=== PATIENT | male | born 1955 | race Caucasian/White ===

== ENCOUNTER 2019-05-06 15:17 | Inpatient (IN) | payer OTHER ==
[2019-05-06 17:39] VITALS: BMI 25.2
--- NOTE | 2019-05-06 19:38 | HP ---
CIWA Score - Admission Criteria OASAS Guidelines: Admission for Medically Managed Detox: Requires at least one of the followin. CIWA greater than 12 2. Seizures within the past 24 hours 3. Delirium tremens within the past 24 hours 4. Hallucinations within the past 24 hours 5. Acute intervention needed for co occurring medical disorder 6. Acute intervention needed for co occurring psychiatric disorder 7. Severe withdrawal that cannot be handled at a lower level of care (continued vomiting, continued diarrhea, abnormal vital signs) requiring intravenous medication and/or fluids 8. Admitting History and Physical - Smoking History Smoking history: Current every day smoker Have you smoked in the past 12 months: Yes Aproximately how many cigarettes per day: 10 - Alcohol/Substance Use Hx Alcohol Use: Yes Admission ROS [facility] Chief Complaint: here for rehab. Allergies/Adverse Reactions: Allergies Allergy/AdvReac Type Severity Reaction Status Date / Time No Known Allergies Allergy Verified 05/06/19 17:18 History of Present Illness: 64 yo with HIV and multiple large and small leg ulcers of both legs. Pt states he was 6 days inpatient detox at a facility- [facility]. Pt is in a methadone program-[address] [address] [facility]. States he is homeless. [place] Pt is homeless. alcohol- 1 pint a day- completed detox cocaine- occ Pt was on Keflex at detox- will restart. HIV pos-cd4> 300, VL- undetectable, does not remember name of meds Pharmacy: [facility]- called but no one picked up this ilana: [phone] [facility] pharmacy: [phone]- called no answer Pt is in a methadone program at [facility] PCP- does not remember name. DUR- no meds Utox: BZO, Bup, cocaine, MTD. - Ebola screening Have you traveled outside of the country in the last 21 days: No Have you had contact with anyone from an Ebola affected area: No - Review of Systems Constitutional: Weakness, Other EENT: reports: No Symptoms Reported Respiratory: reports: No Symptoms reported Cardiac: reports: No Symptoms Reported GI: reports: No Symptoms Reported Musculoskeletal: reports: Other (pt uses walker) Integumentary: reports: Other (ulcer) Patient History - Patient Medical History Hx Anemia: Yes (TAKES IRON SUPPLEMENTS) Hx Asthma: No Hx Chronic Obstructive Pulmonary Disease (COPD): No Hx Cancer: No Hx Cardiac Disorders: No Hx Congestive Heart Failure: No Hx Hypertension: No Hx Hypercholesterolemia: Yes (NO MED) Hx Pacemaker: No HX Cerebrovascular Accident: No Hx Seizures: No Hx Dementia: No Hx Diabetes: No Hx Gastrointestinal Disorders: Yes (acid reflux) Hx Liver Disease: No Hx Genitourinary Disorders: No Hx Sexually Transmitted Disorders: Yes (GONORRHEA AND/OR SYPHILIS IN THE PAST) Hx Renal Disease (ESRD): No Hx Thyroid Disease: Yes (ON LEVOTHYROXINE) Hx Human Immunodeficiency Virus (HIV): Yes (since 1984, does not remember name of medicine) Hx Hepatitis C: Yes (pt states resolved) Hx Depression: No Hx Suicide Attempt: No (DENIES) Hx Bipolar Disorder: No Hx Schizophrenia: No Other Medical History: pt has multiple lower leg ulcers- venous stasis type ulcers - Patient Surgical History Past Surgical History: No Hx Neurologic Surgery: No Hx Cataract Extraction: No Hx Cardiac Surgery: No Hx Lung Surgery: No Hx Breast Surgery: No Hx Breast Biopsy: No Hx Abdominal Surgery: No Hx Appendectomy: No Hx Cholecystectomy: No Hx Genitourinary Surgery: No Hx Section: No Hx Orthopedic Surgery: Yes (FOR DISLOCATION OF LEFT SHOULDER) Anesthesia Reaction: No - PPD History Date: 01/09/16 Results: 0 mm - Smoking Cessation Smoking history: Current every day smoker Have you smoked in the past 12 months: Yes Aproximately how many cigarettes per day: 10 Hx Chewing Tobacco Use: No Initiated information on smoking cessation: Yes 'Breaking Loose' booklet given: 05/06/19 - Substances abused Heroin Substance route: Injection Frequency: Daily Amount used: 2 bag Age of first use: 18 Date of last use: 05/04/19 Cocaine Substance route: Injection Frequency: Daily Amount used: 1 bag Age of first use: 18 Date of last use: 05/04/19 Admission Physical Exam BHS - Vital Signs Vital Signs: Vital Signs - 24 hr 05/06/19 17:09 Temperature 98.6 F Pulse Rate 67 Respiratory 18 Rate Blood Pressure 158/95 - Physical General Appearance: Yes: Disheveled, Mild Distress HEENTM: Yes: Within Normal Limits, Hearing grossly Normal, Normal Voice, WILMA, Pharynx Normal Respiratory: Yes: Within Normal Limits, Lungs Clear Neck: Yes: Within Normal Limits, No masses,lesions,Nodules Cardiology: Yes: Within Normal Limits, Regular Rhythm Abdominal: Yes: Within Normal Limits Musculoskeletal: Yes: Within Normal Limits, Other (uses walker) Extremities: Yes: Other (L leg: large 3 inches by 4 inches uler on L leg and multiple small ulcers on L leg ~0.5 inch round R leg: multiple ulcers on back of R leg) Neurological: Yes: Other Integumentary: Yes: Within Normal Limits, Other (lower leg ulcers) Lymphatic: Yes: Within Normal Limits - Diagnostic (1) Opioid dependence on agonist therapy Current Visit: No Status: Acute (2) HIV (human immunodeficiency virus infection) Current Visit: No Status: Chronic (3) Methadone maintenance therapy patient Current Visit: No Status: Chronic (4) Ulcer of left lower extremity Current Visit: No Status: Chronic Qualifiers: Non-pressure ulcer stage: limited to breakdown of skin Qualified Code(s): L97.921 - Non-pressure chronic ulcer of unspecified part of left lower leg limited to breakdown of skin Inpatient Rehab Admission - Rehab Decision to Admit Inpatient rehab admission?: Yes - Initial Determination Are CD services needed?: Yes Free of communicable disease: Yes Not in need of hospitalization: Yes - Rehab Admission Criteria Previous failed treatment: Yes Poor recovery environment: Yes Comorbidities: Yes Lacks judgement: Yes Patient is meeting Inpatient Rehab admission criteria:: Yes (pt completed detox- on methadone)
[2019-05-06] MEDS ORDERED: MAGNESIUM HYDROX 2400MG/30ML ORAL SUSPENSION 30 ML CUP PO PRN (20:45)
[2019-05-06] MEDS ORDERED: MAGNESIUM CITRATE 300 ML BOTTLE PO PRN (20:45)
[2019-05-06] MEDS ORDERED: P-EPHED 60MG/TRIPROLIDI 2.5MG TABLET PO PRN (20:45)
[2019-05-06] MEDS ORDERED: NICOTINE POLACRILEX 2 MG GUM BC PRN (20:45)
[2019-05-06] MEDS ORDERED: MENTHOL/PHENOL 1 EACH UD MM PRN (20:45)
[2019-05-06] MEDS ORDERED: hydrOXYzine PAMOATE 25 MG CAPSULE (FP) PO PRN (20:45)
[2019-05-06] MEDS ORDERED: ACETAMINOPHEN 325 MG TABLET (FP) PO PRN (20:45)
[2019-05-06] MEDS ORDERED: guaiFENesin 200 MG/10 ML 10 ML UNIT-DOSE CUPS PO PRN (20:45)
[2019-05-06] MEDS: THIAMINE HCL 100 MG TABLET (FP) PO SCH (22:17)
[2019-05-06] MEDS: CEPHALEXIN MONOHYDRATE 500 MG CAPSULE (UD) PO SCH (22:17)
[2019-05-07] MEDS ORDERED: METHADONE HCL 10 MG TABLET PO SCH (09:00)
[2019-05-07] MEDS ORDERED: METHADONE HCL 10 MG TABLET ONE (10:55)
[2019-05-07] MEDS: METHADONE 120 MG, METHADONE 10 MG PO SCH (10:56)
[2019-05-07] MEDS ORDERED: METHADONE HCL 40 MG DISPERSABLE TABLET ONE (10:56)
[2019-05-07] MEDS: CEPHALEXIN MONOHYDRATE 500 MG CAPSULE (UD) PO SCH ×2 (10:59→21:59)
[2019-05-07] MEDS: NICOTINE 14 MG/24 HOURS TOPICAL PATCH TD SCH (10:59)
[2019-05-07] MEDS: PRENATAL VITAMINS W/ FOLIC ACID TABLET (FP) PO SCH (10:59)
[2019-05-07 11:54] LABS: HEMATOCRIT 28.6 % (35.4-49); HEMOGLOBIN 8.8 GM/dL (11.7-16.9); MCH 21.6 pg (25.7-33.7); MCHC 30.7 g/dl (32.0-35.9); MEAN CELL VOLUME 70.3 fl (80-96); MEAN PLT VOLUME 8.6 fl (7.5-11.1); PLATELET COUNT 259 K/MM3 (134-434); RBC 4.07 M/mm3 (4.00-5.60); RDW 25.4 % (11.9-15.9); WHITE BLOOD COUNT 3.8 K/mm3 (4.0-10.0)
[2019-05-07 12:11] LABS: BILIRUBIN,TOTAL 0.2 mg/dL (0.2-1); BLOOD UREA NITROGEN 11.4 mg/dL (7-18); CREATININE 0.9 mg/dL (0.55-1.3); TOT PROT 8.2 g/dl (6.4-8.2)
--- NOTE | 2019-05-07 14:42 | PN ---
S Progress Note (SOAP) Subjective: low hgb and hct. Asymptomatic Assessment: anemia, type unspecified 05/07/19 14:42 Plan: Iron supplementation ordered. Will repeat labs.
[2019-05-07] MEDS: LOPERAMIDE HCL 2 MG CAPSULE PO PRN (16:24)
[2019-05-07 17:12] LABS: URINE APPEARANCE CLEAR; URINE BILIRUBIN NEGATIVE (NEGATIVE); URINE COLOR YELLOW; URINE GLUCOSE (UA) NEGATIVE (NEGATIVE); URINE KETONE NEGATIVE (NEGATIVE); URINE LEUK ESTERASE NEGATIVE (NEGATIVE); URINE NITRITE NEGATIVE (NEGATIVE); URINE PROTEIN NEGATIVE (NEGATIVE); URINE UROBILINOGEN 0.2 mg/dL (0.2-1.0)
[2019-05-07] MEDS: ASCORBIC ACID 250 MG TABLET (FP) PO SCH (18:41)
[2019-05-07] MEDS: FERROUS SO4 325 MG TABLET (FP) PO SCH (18:41)
[2019-05-07] MEDS: THIAMINE HCL 100 MG TABLET (FP) PO SCH (21:59)
[2019-05-07] MEDS: MELATONIN 5 MG TABLETS PO PRN (22:00)
[2019-05-07] MEDS: BACITRACIN 15 GM TUBE TOPICAL OINTMENT TP SCH (22:00)
[2019-05-08] MEDS ORDERED: METHADONE HCL 40 MG DISPERSABLE TABLET ONE (05:05)
[2019-05-08] MEDS ORDERED: METHADONE HCL 10 MG TABLET ONE (05:05)
[2019-05-08] MEDS: LOPERAMIDE HCL 2 MG CAPSULE PO PRN ×2 (06:49→13:08)
[2019-05-08] MEDS: METHADONE 120 MG, METHADONE 10 MG PO SCH (06:50)
[2019-05-08] MEDS: FERROUS SO4 325 MG TABLET (FP) PO SCH ×3 (07:17→17:52)
[2019-05-08] MEDS: ASCORBIC ACID 250 MG TABLET (FP) PO SCH ×2 (07:17→17:52)
[2019-05-08] MEDS: CEPHALEXIN MONOHYDRATE 500 MG CAPSULE (UD) PO SCH ×2 (11:01→21:41)
[2019-05-08] MEDS: BACITRACIN 15 GM TUBE TOPICAL OINTMENT TP SCH ×2 (11:01→21:40)
[2019-05-08] MEDS: PRENATAL VITAMINS W/ FOLIC ACID TABLET (FP) PO SCH (11:02)
[2019-05-08] MEDS: NICOTINE 14 MG/24 HOURS TOPICAL PATCH TD SCH (11:03)
[2019-05-08] MEDS: MELATONIN 5 MG TABLETS PO PRN (21:42)
[2019-05-08] MEDS: THIAMINE HCL 100 MG TABLET (FP) PO SCH (21:42)
[2019-05-09] MEDS ORDERED: METHADONE HCL 10 MG TABLET ONE (05:47)
[2019-05-09] MEDS ORDERED: METHADONE HCL 40 MG DISPERSABLE TABLET ONE (05:47)
[2019-05-09] MEDS: METHADONE 120 MG, METHADONE 10 MG PO SCH (06:27)
[2019-05-09] MEDS: FERROUS SO4 325 MG TABLET (FP) PO SCH ×3 (07:44→18:16)
[2019-05-09] MEDS: ASCORBIC ACID 250 MG TABLET (FP) PO SCH ×2 (07:44→18:15)
[2019-05-09] MEDS ORDERED: cloNIDine HCL 0.1 MG TABLET PO PRN (09:40)
[2019-05-09] MEDS: CEPHALEXIN MONOHYDRATE 500 MG CAPSULE (UD) PO SCH ×2 (11:09→21:46)
[2019-05-09] MEDS: PRENATAL VITAMINS W/ FOLIC ACID TABLET (FP) PO SCH (11:09)
[2019-05-09] MEDS: NICOTINE 14 MG/24 HOURS TOPICAL PATCH TD SCH (11:10)
[2019-05-09] MEDS: BACITRACIN 15 GM TUBE TOPICAL OINTMENT TP SCH ×2 (11:10→21:47)
--- NOTE | 2019-05-09 12:17 | PN ---
[facility] Progress Note Note: Pt is a 64 y/o male admitted to rehab for AMY. Pt is homeless and reports sleeping in the [place]. This automatic typewriter inspector called pt's home pharmacy, [facility] and verified his medications as pt is requesting to restart his medicines. Pt is currently taking Biktarvy 1 tab po daily, Levothyroxine 200 mcg po daily, Omeprazole 40 mg po daily, Bactrim Ds 1 tab po daily. Pt reported to be receiving primary care at [facility] at [address] [place] [address] with primary care providers, Dr. Jose Angel Hernandez M.D and NOVA Fernandez. Pt has chronic bilateral lower leg ulcers and dressings were done this morning and examined. Pt reports he has a primary care doctor who manages his medical condition. Vital Signs - 8 hr 05/09/19 08:08 Temperature 97.9 F Pulse Rate 78 Respiratory 18 Rate Blood Pressure 153/82 Exam: Lower extremities/Skin:Right LE with one large oblong shaped ulcer wound of 2cm x 1 cm distal to calf area. One small rounded ulcer about 1/2 cm in size-pink granulation tissue with no drainage. Left LE with one large oval shaped ulcer 2 1/2 cm x 3 cm distal to gilmore area- pink granulation tissue,clean with no drainage. Three small ulcers, of about 1 cm each above heel and the other two dorsally located above ankle. No drainage. A/P Chronic LLE Ulcers Continue wound care and dressing changes as directed. Restart Biktarvy, feosol, protonix. Do Thyroid profile labs Pt will follow up with his PCP after rehab upon discharge for medical management.
[2019-05-09] MEDS: LOPERAMIDE HCL 2 MG CAPSULE PO PRN (12:29)
[2019-05-09] MEDS: BISMUTH SUBSALICYLATE 262 MG/15 ML BTL PO PRN ×2 (14:17→21:48)
[2019-05-09] MEDS: SULFAMETHOXAZOLE/TRIMETHOPRIM 800MG/160MG D.S. TABLET PO SCH (14:31)
[2019-05-09] MEDS: THIAMINE HCL 100 MG TABLET (FP) PO SCH (21:46)
[2019-05-09] MEDS: MELATONIN 5 MG TABLETS PO PRN (21:47)
[2019-05-09] MEDS: IBUPROFEN 400 MG TABLET (FP) PO PRN (22:10)
[2019-05-10] MEDS ORDERED: METHADONE HCL 40 MG DISPERSABLE TABLET ONE (05:48)
[2019-05-10] MEDS ORDERED: METHADONE HCL 10 MG TABLET ONE (05:48)
[2019-05-10] MEDS: METHADONE 120 MG, METHADONE 10 MG PO SCH (06:46)
[2019-05-10] MEDS: FERROUS SO4 325 MG TABLET (FP) PO SCH ×3 (07:12→17:04)
[2019-05-10] MEDS: ASCORBIC ACID 250 MG TABLET (FP) PO SCH ×2 (07:12→17:04)
[2019-05-10] MEDS: SULFAMETHOXAZOLE/TRIMETHOPRIM 800MG/160MG D.S. TABLET PO SCH (10:38)
[2019-05-10] MEDS: PRENATAL VITAMINS W/ FOLIC ACID TABLET (FP) PO SCH (10:38)
[2019-05-10] MEDS: BICTEGRAV/EMTRICIT/TENOFOV (BIKTARVY) 50-200-25 MG TABLET PO SCH (10:38)
[2019-05-10] MEDS: CEPHALEXIN MONOHYDRATE 500 MG CAPSULE (UD) PO SCH ×2 (10:38→21:29)
[2019-05-10] MEDS: BACITRACIN 15 GM TUBE TOPICAL OINTMENT TP SCH ×2 (10:39→21:29)
[2019-05-10] MEDS: NICOTINE 14 MG/24 HOURS TOPICAL PATCH TD SCH (10:39)
[2019-05-10] MEDS: GABAPENTIN 300 MG CAPSULE (FP) PO SCH (10:39)
[2019-05-10] MEDS: BISMUTH SUBSALICYLATE 262 MG/15 ML BTL PO PRN ×2 (13:49→21:30)
[2019-05-10] MEDS: THIAMINE HCL 100 MG TABLET (FP) PO SCH (21:29)
[2019-05-10] MEDS: MELATONIN 5 MG TABLETS PO PRN (21:31)
[2019-05-11] MEDS ORDERED: METHADONE HCL 10 MG TABLET ONE (05:23)
[2019-05-11] MEDS ORDERED: METHADONE HCL 40 MG DISPERSABLE TABLET ONE (05:23)
[2019-05-11] MEDS: METHADONE 120 MG, METHADONE 10 MG PO SCH (06:55)
[2019-05-11] MEDS: FERROUS SO4 325 MG TABLET (FP) PO SCH ×3 (07:20→16:55)
[2019-05-11] MEDS: ASCORBIC ACID 250 MG TABLET (FP) PO SCH ×2 (07:20→16:55)
[2019-05-11 09:48] LABS: BASO % 0.6 % (0-2.0); EOS % 13.5 % (0-4.5); HEMATOCRIT 26.9 % (35.4-49); HEMOGLOBIN 8.5 GM/dL (11.7-16.9); LYMPH % 26.3 % (8-40); MCH 22.3 pg (25.7-33.7); MCHC 31.8 g/dl (32.0-35.9); MEAN CELL VOLUME 70.3 fl (80-96); MEAN PLT VOLUME 8.4 fl (7.5-11.1); NEUT % 53.6 % (42.8-82.8); PLATELET COUNT 222 K/MM3 (134-434); RBC 3.83 M/mm3 (4.00-5.60); RDW 24.9 % (11.9-15.9); WHITE BLOOD COUNT 4.3 K/mm3 (4.0-10.0)
[2019-05-11] MEDS: PRENATAL VITAMINS W/ FOLIC ACID TABLET (FP) PO SCH (10:03)
[2019-05-11] MEDS: CEPHALEXIN MONOHYDRATE 500 MG CAPSULE (UD) PO SCH ×2 (10:03→21:31)
[2019-05-11] MEDS: SULFAMETHOXAZOLE/TRIMETHOPRIM 800MG/160MG D.S. TABLET PO SCH (10:03)
[2019-05-11] MEDS: GABAPENTIN 300 MG CAPSULE (FP) PO SCH (10:03)
[2019-05-11] MEDS: BICTEGRAV/EMTRICIT/TENOFOV (BIKTARVY) 50-200-25 MG TABLET PO SCH (10:04)
[2019-05-11] MEDS: BACITRACIN 15 GM TUBE TOPICAL OINTMENT TP SCH ×2 (10:04→21:32)
[2019-05-11] MEDS: NICOTINE 14 MG/24 HOURS TOPICAL PATCH TD SCH (10:05)
[2019-05-11] MEDS: IBUPROFEN 400 MG TABLET (FP) PO PRN ×2 (12:36→21:32)
[2019-05-11 14:54] LABS: ANISOCYTOSIS 1+; MACROCYTOSIS 0; OVALOCYTE 1+; PLATELET ESTIMATE NORMAL; TEAR DROP CELLS 1+
[2019-05-11] MEDS: THIAMINE HCL 100 MG TABLET (FP) PO SCH (21:31)
[2019-05-12] MEDS: MAG HYDROX/AL HYDROX/SIMETH 30 ML UNIT-DOSE CUP PO PRN ×3 (03:13→21:36)
[2019-05-12] MEDS ORDERED: METHADONE HCL 10 MG TABLET ONE (06:20)
[2019-05-12] MEDS ORDERED: METHADONE HCL 40 MG DISPERSABLE TABLET ONE (06:21)
[2019-05-12] MEDS: METHADONE 120 MG, METHADONE 10 MG PO SCH (06:22)
[2019-05-12] MEDS: ASCORBIC ACID 250 MG TABLET (FP) PO SCH ×2 (07:38→17:40)
[2019-05-12] MEDS: FERROUS SO4 325 MG TABLET (FP) PO SCH ×3 (07:38→17:40)
[2019-05-12] MEDS: GABAPENTIN 300 MG CAPSULE (FP) PO SCH (09:01)
[2019-05-12] MEDS: CEPHALEXIN MONOHYDRATE 500 MG CAPSULE (UD) PO SCH ×2 (09:01→21:35)
[2019-05-12] MEDS: NICOTINE 14 MG/24 HOURS TOPICAL PATCH TD SCH (09:01)
[2019-05-12] MEDS: SULFAMETHOXAZOLE/TRIMETHOPRIM 800MG/160MG D.S. TABLET PO SCH (09:01)
[2019-05-12] MEDS: BICTEGRAV/EMTRICIT/TENOFOV (BIKTARVY) 50-200-25 MG TABLET PO SCH (09:01)
[2019-05-12] MEDS: PRENATAL VITAMINS W/ FOLIC ACID TABLET (FP) PO SCH (09:01)
[2019-05-12] MEDS: BACITRACIN 15 GM TUBE TOPICAL OINTMENT TP SCH ×2 (09:02→21:36)
[2019-05-12] MEDS: IBUPROFEN 400 MG TABLET (FP) PO PRN (09:03)
[2019-05-12] MEDS: THIAMINE HCL 100 MG TABLET (FP) PO SCH (21:35)
[2019-05-13] MEDS ORDERED: METHADONE HCL 40 MG DISPERSABLE TABLET ONE (05:50)
[2019-05-13] MEDS ORDERED: METHADONE HCL 10 MG TABLET ONE (05:50)
[2019-05-13] MEDS: METHADONE 120 MG, METHADONE 10 MG PO SCH (05:51)
[2019-05-13 06:34] VITALS: BP 137/84; PULSE 71; TEMP 97.8
[2019-05-13] MEDS: FERROUS SO4 325 MG TABLET (FP) PO SCH (07:04)
[2019-05-13] MEDS: ASCORBIC ACID 250 MG TABLET (FP) PO SCH (07:05)
[2019-05-13] MEDS: BICTEGRAV/EMTRICIT/TENOFOV (BIKTARVY) 50-200-25 MG TABLET PO SCH (09:25)
[2019-05-13] MEDS: CEPHALEXIN MONOHYDRATE 500 MG CAPSULE (UD) PO SCH (09:26)
[2019-05-13] MEDS: GABAPENTIN 300 MG CAPSULE (FP) PO SCH (09:26)
[2019-05-13] MEDS: NICOTINE 14 MG/24 HOURS TOPICAL PATCH TD SCH (09:26)
[2019-05-13] MEDS: PRENATAL VITAMINS W/ FOLIC ACID TABLET (FP) PO SCH (09:26)
[2019-05-13] MEDS: MAG HYDROX/AL HYDROX/SIMETH 30 ML UNIT-DOSE CUP PO PRN (09:29)
[2019-05-13] MEDS: SULFAMETHOXAZOLE/TRIMETHOPRIM 800MG/160MG D.S. TABLET PO SCH (09:57)
[2019-05-13] MEDS: BACITRACIN 15 GM TUBE TOPICAL OINTMENT TP SCH (09:57)
--- NOTE | 2019-05-13 10:09 | DS ---
[facility] Rehab Discharge Summary - [facility] Rehab Discharge Summary Admission Date: 05/06/19 Discharge Date: 05/13/19 - History Present History: Alcohol dependence, Cocaine dependence, MMTP, Opioid dependence Additional Comments: Pt is a 64 y/o male with a hx of AMY admitted to rehab after detox. Pt requested for early discharge today stating "If I don't find a room today, I'm gonna sleep on the street". Pt states he wants to follow up with his housing needs today. Pt has a primary care provider Dr. Jose Angel Hernandez M.D and NOVA Fernandez at [facility] for follow up care. Pertinent Past History: Anemia(On feosol) HIV+(on Biktarvy) Gerd Hypothyroidism(noncompliant with med-was on synthroid) BPH(was on Hytrin but noncompliant) Hypercholesterolemia(no meds) Chronic multiple Lower Leg Ulcers. - Discharge Physical Exam Vital Signs: Vital Signs Temperature 97.8 F 05/13/19 06:33 Pulse Rate 71 05/13/19 06:33 Respiratory Rate 18 05/13/19 06:33 Blood Pressure 137/84 05/13/19 06:33 O2 Sat by Pulse Oximetry (%) Alert o x 3 nad oob ambulating with steady gait with a cane cardiac:s1 s2, rrr lungs:cta,[place]. abdomen:soft,+bs, nt, nd extremities/skin:Bilateral LE chronic Ulcers; Full ROM. see below for current skin exam conditions: Lower extremities/Skin:Right LE with one large oblong shaped ulcer wound of 2cm x 1 cm distal to calf area. One small rounded ulcer about 1/2 cm in size-pink granulation tissue with no drainage. Left LE with one large oval shaped ulcer 2 1/2 cm x 3 cm distal to gilmore area- pink granulation tissue,clean with no drainage. Three small ulcers, of about 1 cm each above heel and the other two dorsally located above ankle. No drainage. Pertinent Admission Physical Exam Findings: Laboratory Tests 05/07/19 05/07/19 05/07/19 08:35 08:35 08:35 WBC 3.8 L RBC 4.07 Hgb 8.8 L Hct 28.6 L MCV 70.3 L MCH 21.6 L MCHC 30.7 L RDW 25.4 H Plt Count 259 D MPV 8.6 D Absolute Neuts (auto) Neutrophils % Lymphocytes % Monocytes % Eosinophils % Basophils % Nucleated RBC % Hypochromia Platelet Estimate Polychromasia Poikilocytosis Anisocytosis Microcytosis Macrocytosis Spherocytes Tear Drop Cells Ovalocytes Sodium 141 Potassium 4.0 Chloride 109 H Carbon Dioxide 25 Anion Gap 7 L BUN 11.4 Creatinine 0.9 Est GFR (CKD-EPI)AfAm 105.72 Est GFR (CKD-EPI)NonAf 91.22 Random Glucose 91 Calcium 9.0 Total Bilirubin 0.2 AST 35 ALT 40 Alkaline Phosphatase 148 H Total Protein 8.2 Albumin 3.0 L TSH Resin T3 Uptake Urine Color Urine Appearance Urine pH Ur Specific [place] Urine Protein Urine Glucose (UA) Urine Ketones Urine Blood Urine Nitrite Urine Bilirubin Urine Urobilinogen Ur Leukocyte Esterase RPR Titer Nonreactive 05/07/19 05/10/19 05/11/19 13:30 10:55 07:45 WBC 4.3 RBC 3.83 L Hgb 8.5 L Hct 26.9 L MCV 70.3 L MCH 22.3 L MCHC 31.8 L RDW 24.9 H Plt Count 222 MPV 8.4 Absolute Neuts (auto) 2.3 Neutrophils % 53.6 Lymphocytes % 26.3 Monocytes % 6.0 Eosinophils % 13.5 H Basophils % 0.6 Nucleated RBC % 0 Hypochromia 0 Platelet Estimate Normal Polychromasia 0 Poikilocytosis 2+ Anisocytosis 1+ Microcytosis 1+ Macrocytosis 0 Spherocytes 1+ Tear Drop Cells 1+ Ovalocytes 1+ Sodium Potassium Chloride Carbon Dioxide Anion Gap BUN Creatinine Est GFR (CKD-EPI)AfAm Est GFR (CKD-EPI)NonAf Random Glucose Calcium Total Bilirubin AST ALT Alkaline Phosphatase Total Protein Albumin TSH 8.59 H Resin T3 Uptake 32.3 L Urine Color Yellow Urine Appearance Clear Urine pH 5.0 Ur Specific [place] 1.018 Urine Protein Negative Urine Glucose (UA) Negative Urine Ketones Negative Urine Blood Negative Urine Nitrite Negative Urine Bilirubin Negative Urine Urobilinogen 0.2 Ur Leukocyte Esterase Negative RPR Titer Chronic ulcers of LE,Bilateral. - Treatment Discharge Condition: Discharge condition good Hospital Course: Rehabilitated safely and responded well CD aftercare referral accepted - Medication Discharge Medications: Ambulatory Orders Clobetasol Prop 0.05% Tp Oint [Temovate (Nf)] 60 gm TP BID 05/15/14 Levothyroxine [Synthroid -] 200 mcg PO DAILY@0700 01/07/16 Terazosin HCl [Hytrin -] 1 mg PO DAILY 01/07/16 Terbinafine HCl [Terbinafine] 15 gm TP BID 01/07/16 traZODone HCL [Desyrel -] 100 mg PO HS #30 tablet 01/15/16 Bictegrav/Emtricit/Tenofov Ala [Biktarvy 50-200-25 mg Tablet] 1 each PO DAILY Gabapentin [Neurontin -] 300 mg PO DAILY 05/09/19 Ferrous Sulfate [Feosol] 325 mg PO BID #60 tablet 05/13/19 Sulfamethoxazole/Trimethoprim [Bactrim DS -] 1 tab PO DAILY #30 tablet 05/13/19 - Medication-Assisted Treatment (MAT) Medication-Assisted Treatment (MAT): No - Discharge Instructions Diet, activity, other medical instructions: Diet:Regular Activity: oob ad ger Other medical instructions:Follow up with primary care with Dr. Hernandez today after discharge. Follow up with CD aftercare referral as recommended. - Diagnosis (1) Chronic ulcer of leg Status: Chronic Qualifiers: Laterality: right (2) Alcohol dependence Status: Chronic (3) Cocaine dependence, uncomplicated Status: Chronic (4) Nicotine dependence Status: Chronic Qualifiers: Nicotine product type: cigarettes Substance use status: uncomplicated Qualified Code(s): F17.210 - Nicotine dependence, cigarettes, uncomplicated (5) Opioid dependence Status: Chronic (6) HIV (human immunodeficiency virus infection) Status: Chronic (7) HYPOTHYROIDISM Status: Chronic (8) Methadone maintenance therapy patient Status: Chronic (9) Ulcer of left lower extremity Status: Chronic Qualifiers: Non-pressure ulcer stage: limited to breakdown of skin Qualified Code(s): L97.921 - Non-pressure chronic ulcer of unspecified part of left lower leg limited to breakdown of skin - Follow-up Referral Minutes to complete discharge: 30 - AMA Did Patient Leave Against Medical Advice: No Additional Comments: Pt has been reminded to spanish moss picker his outstanding medications [facility] . . pt's home pharmacist verified pt has meds to be picked up
== END 2019-05-13 11:05 | disposition home or self-care (01) | DRG 772 ==
LOC: YASAS 15:17 → Y5N 20:55
PROVIDERS: ADMIT Neuromusculoskeletal Medicine & OMM; ATTEND Neuromusculoskeletal Medicine & OMM
PROC: HZ42ZZZ Group Counseling for Substance Abuse Treatment, Cognitive-Behavioral (ICD-10-PCS; principal; 2019-05-06)
DX: F11.20 Opioid dependence, uncomplicated (principal); F10.20 Alcohol dependence, uncomplicated; F14.20 Cocaine dependence, uncomplicated; F17.210 Nicotine dependence, cigarettes, uncomplicated; Z21 Asymptomatic human immunodeficiency virus [HIV] infection status; E03.9 Hypothyroidism, unspecified; L97.829 Non-pressure chronic ulcer of other part of left lower leg with unspecified severity; L97.819 Non-pressure chronic ulcer of other part of right lower leg with unspecified severity; D64.9 Anemia, unspecified; K21.9 Gastro-esophageal reflux disease without esophagitis; Z86.19 Personal history of other infectious and parasitic diseases; Z87.438 Personal history of other diseases of male genital organs; Z59.0 Homelessness
CPT/HCPCS: 36415; 80053; 81003; 84436; 84443; 84479; 85025; 85027; 86593

== ENCOUNTER 2023-11-29 11:24 | Inpatient (IN) | payer OTHER ==
[2023-11-29 12:22] VITALS: BMI 25.4
[2023-11-29] MEDS ORDERED: MAGNESIUM HYDROX 2400MG/30ML ORAL SUSPENSION 30 ML CUP PO PRN (16:39)
[2023-11-29] MEDS ORDERED: DICYCLOMINE HCL 10 MG CAPSULE PO PRN (16:39)
[2023-11-29] MEDS ORDERED: POLYETHYLENE GLYCOL (HEALTHYLAX) 3350 17 GM PACKET PO PRN (16:39)
[2023-11-29] MEDS ORDERED: ONDANSETRON *ODT* 4 MG TABLET SL PRN (16:39)
[2023-11-29] MEDS ORDERED: BENZOCAINE/MENTHOL (CHLORASEPTIC ) LOZENGE MM PRN (16:39)
[2023-11-29] MEDS ORDERED: BISMUTH SUBSALICYLATE 524 MG/30 ML PO PRN (16:39)
[2023-11-29] MEDS ORDERED: MAG HYDROX/AL HYDROX/SIMETH 30 ML UNIT-DOSE CUP PO PRN (16:39)
[2023-11-29] MEDS ORDERED: IBUPROFEN 400 MG TABLET (FP) PO PRN (16:39)
[2023-11-29] MEDS ORDERED: LOPERAMIDE HCL 2 MG CAPSULE PO PRN (16:39)
[2023-11-29] MEDS ORDERED: NALOXONE HCL 0.4 MG/ML VIAL IM PRN (16:39)
[2023-11-29] MEDS ORDERED: ACETAMINOPHEN 325 MG TABLET (FP) PO PRN (16:39)
[2023-11-29] MEDS ORDERED: NALOXONE HCL (KLOXXADO) 8 MG SPRAY NS PRN (16:39)
[2023-11-29] MEDS ORDERED: BENZONATATE 200 MG CAPSULE PO PRN (16:39)
[2023-11-29] MEDS ORDERED: guaiFENesin 600 MG TABLET.ER (FP) PO PRN (16:39)
[2023-11-29] MEDS: methaDONE HCL 10 MG TABLET PO ONE (17:15)
[2023-11-29] MEDS: PRENATAL VITAMINS W/ FOLIC ACID TABLET (FP) PO SCH (17:16)
[2023-11-29] MEDS: cloNIDine HCL 0.1 MG TABLET PO SCH (17:29)
[2023-11-29] MEDS: IBUPROFEN 600 MG TABLET (FP) PO PRN (17:31)
[2023-11-29] MEDS ORDERED: methaDONE HCL 10 MG TABLET PO PRN (18:39)
[2023-11-29] MEDS ORDERED: PATIENT'S OWN MEDICATION (NON-FORMULARY) (Ferrous Sulfate [Feosol] 325 MG Tablet) PO SCH (22:00)
[2023-11-29] MEDS ORDERED: TERBINAFINE HCL TP SCH (22:00)
[2023-11-29] MEDS: METHOCARBAMOL 500 MG TABLET PO PRN (23:15)
[2023-11-29] MEDS: THIAMINE 100 MG TABLET PO SCH (23:15)
[2023-11-29] MEDS: MELATONIN 5 MG TABLETS PO SCH (23:16)
[2023-11-29] MEDS: FERROUS SO4 325 MG TABLET (FP) PO SCH (23:16)
[2023-11-30] MEDS: LEVOTHYROXINE NA 100 MCG TABLET (FP) PO SCH (06:20)
[2023-11-30] MEDS: TERAZOSIN HCL 1 MG CAPSULE PO SCH (09:07)
[2023-11-30] MEDS: GABAPENTIN 100 MG CAPSULE PO SCH (09:08)
[2023-11-30] MEDS: BICTEGRAV/EMTRICIT/TENOFOV (BIKTARVY) 50-200-25 MG TABLET PO SCH (09:08)
[2023-11-30] MEDS: SULFAMETHOXAZOLE/TRIMETHOPRIM 800MG/160MG D.S. TABLET PO SCH (09:08)
[2023-11-30] MEDS: methaDONE 40 MG, methaDONE 10 MG PO ONE (09:10)
[2023-11-30] MEDS ORDERED: TERAZOSIN HCL 1 MG PO SCH (10:00)
[2023-11-30 11:52] LABS: HEMATOCRIT 23.5 % (35.4-49); HEMOGLOBIN 7.5 GM/dL (11.7-16.9); MCH 24.4 pg (25.7-33.7); MCHC 32.1 g/dl (32.0-35.9); MEAN CELL VOLUME 75.8 fl (80-96); MEAN PLT VOLUME 6.8 fl (7.5-11.1); PLATELET COUNT 225 10^3/uL (134-434); RDW 17.2 % (11.9-15.9); WHITE BLOOD COUNT 2.8 K/mm3 (4.0-10.0)
[2023-11-30 12:01] LABS: CALCIUM 8.5 mg/dL (8.5-10.1)
[2023-11-30 12:02] LABS: ALBUMIN 2.1 g/dl (3.4-5.0); BLOOD UREA NITROGEN 21.5 mg/dL (7-18)
[2023-11-30 12:05] LABS: CREATININE 1.6 mg/dL (0.55-1.3)
[2023-11-30 12:07] LABS: BILIRUBIN,TOTAL 0.2 mg/dL (0.2-1); TOT PROT 7.5 g/dl (6.4-8.2)
[2023-11-30 12:49] LABS: POTASSIUM 4.4 mmol/L (3.5-5.1)
[2023-11-30] MEDS ORDERED: BETAMETHASONE DIPR 0.05% OINT 45 GM TUBE TP SCH (22:00)
[2023-11-30] MEDS: BETAMETHASONE DIPR 0.05% OINT 45 GM TUBE TP SCH (22:47)
[2023-12-01] MEDS: methaDONE 40 MG, methaDONE 20 MG PO ONE (09:05)
[2023-12-01] MEDS: cloNIDine HCL 0.1 MG TABLET PO PRN (14:49)
[2023-12-01] MEDS: hydrOXYzine PAMOATE 25 MG CAPSULE (FP) PO PRN (17:12)
[2023-12-02] MEDS: methaDONE 40 MG, methaDONE 30 MG PO ONE (09:15)
[2023-12-03] MEDS: methaDONE HCL 40 MG DISPERSABLE TABLET PO ONE (10:16)
[2023-12-04] MEDS: methaDONE 80 MG, methaDONE 10 MG PO ONE (09:50)
[2023-12-05 08:48] VITALS: BP 116/66; PULSE 61; RESP 18; TEMP 97.3
[2023-12-05] MEDS: methaDONE 80 MG, methaDONE 10 MG PO ONE (09:11)
== END 2023-12-05 10:30 | disposition other institution (70) | DRG 773 ==
LOC: YASAS 11:24 → Y6N 14:12
PROVIDERS: ADMIT Allergy & Immunology; ATTEND Surgery
PROC: HZ2ZZZZ Detoxification Services for Substance Abuse Treatment (ICD-10-PCS; principal; 2023-11-29)
DX: F11.23 Opioid dependence with withdrawal (principal); F14.20 Cocaine dependence, uncomplicated; F17.210 Nicotine dependence, cigarettes, uncomplicated; F19.282 Other psychoactive substance dependence with psychoactive substance-induced sleep disorder; F19.24 Other psychoactive substance dependence with psychoactive substance-induced mood disorder; Z21 Asymptomatic human immunodeficiency virus [HIV] infection status; G62.9 Polyneuropathy, unspecified; D50.9 Iron deficiency anemia, unspecified; E03.9 Hypothyroidism, unspecified; D72.819 Decreased white blood cell count, unspecified; L97.909 Non-pressure chronic ulcer of unspecified part of unspecified lower leg with unspecified severity; N28.9 Disorder of kidney and ureter, unspecified; N40.0 Benign prostatic hyperplasia without lower urinary tract symptoms; Z79.899 Other long term (current) drug therapy; Z86.19 Personal history of other infectious and parasitic diseases
CPT/HCPCS: 36415; 80053; 80305; 80307; 82962; 85027; 86593; 86780; 93005; 93010